=== PATIENT | female | born 1945 | race Caucasian/White ===

== ENCOUNTER → 2017-10-24 19:06 | Outpatient (REF) | payer MEDICARE, SELFPAY | LOC: LAB 19:06 | PROVIDERS: Family Provider Family Medicine Geriatric Medicine; PCP Family Medicine Geriatric Medicine; Visit Provider Orthopaedic Surgery | DX: M16.12 Unilateral primary osteoarthritis, left hip (principal) | CPT/HCPCS: 87070; 87075; 87077; 87205 ==

== ENCOUNTER → 2018-08-18 19:28 | Outpatient (REF) | payer MEDICARE, SELFPAY ==
[2018-08-18 19:43] LABS: Add Manual Diff / Slide Review NO; Basophils Absolute Auto 100 /uL (0-100); Eosinophils Absolute Auto 500 /uL (0-450); Eosinophils Percent Auto 5.3 % (2-4); Hematocrit 41.3 % (36-46); Hemoglobin 13.6 g/dL (12.0-16.0); Lymphocytes Absolute Auto 2900 /uL (1100-4500); Lymphocytes Percent Auto 33.7 % (25-40); Mean Corpuscular HGB Conc 32.9 % (30-36); Mean Corpuscular Hemoglobin 31.6 PG (26-34); Mean Corpuscular Volume 96.1 fL (80-100); Monocytes Absolute Auto 600 /uL (0-900); Monocytes Percent Auto 6.6 % (3-14); Neutrophils Absolute Auto 4700 /uL (1500-7000); Neutrophils Percent Auto 53.4 % (50-75); Platelet Count 221 X10^3/uL (150-400); Red Cell Distribution Width 12.9 % (11.6-14.8); White Blood Cell Count 8.7 X10^3/uL (4.5-11.0)
[2018-08-18 20:15] LABS: Alanine Aminotransferase 33 IU/L (9-52); Albumin 4.4 g/dL (3.5-5.0); Albumin Globulin Ratio 1.9 (1.0-2.8); Alkaline Phosphatase 93 U/L (38-126); Aspartate Aminotransferase 23 IU/L (14-36); BUN Creatinine Ratio 23.8 (6-22); Bilirubin Total 0.2 mg/dL (0.2-1.3); Blood Urea Nitrogen 19 mg/dL (7-17); Carbon Dioxide 27 mmol/L (22-32); Chloride 105 mmol/L (98-107); Cholesterol 207 mg/dL (140-199); Estimated Glomerular Filt Rate > 60.0 mL/min (>60); Globulin 2.3 g/dL (1.7-4.1); Glucose 213 mg/dL (80-110); HDL Cholesterol 46 mg/dL (40-60); HEMOLYSIS < 15 (0-50); LDL Cholesterol Calculated 123 mg/dL (<100); Potassium 4.6 mmol/L (3.4-5.1); Sodium 140 mmol/L (137-145); Total Protein 6.7 g/dL (6.3-8.2); Triglycerides 188 mg/dL (35-150)
[2018-08-18 20:16] LABS: Creatinine Urine Random 206.1 mg/dL
[2018-08-18 20:20] LABS: Microalbumi Creatinin Ratio Ur 18.4 ug/mg CR (<30); Microalbumin Urine Random 3.8 mg/dL (0-1.6)
[2018-08-18 20:22] LABS: Hemoglobin A1C% w Est Avg Glu 8.5 % (4.0-6.0)
[2018-08-18 20:42] LABS: T4 Total Thyroxine 6.71 ug/dL (5.5-11.0); T7 (Free Thyroxine Index) 2.07 (1.65-3.89); Triiodothryronine T3 Uptake 30.8 % (23.5-40.5)
[2018-08-18 20:56] LABS: Thyroid Stimulating Hormone 2.28 uIU/mL (0.47-4.68)
== END ==
LOC: LAB 19:28
PROVIDERS: Family Provider Family Medicine Geriatric Medicine; PCP Family Medicine Geriatric Medicine; Visit Provider Family Medicine Geriatric Medicine
DX: E11.9 Type 2 diabetes mellitus without complications (principal); I10 Essential (primary) hypertension; Z13.29 Encounter for screening for other suspected endocrine disorder; Z79.899 Other long term (current) drug therapy
CPT/HCPCS: 36415; 80053; 80061; 82043; 82570; 83036; 84436; 84443; 84479; 85025

== ENCOUNTER 2020-03-14 09:23 | Day surgery (SDC) | payer MEDICARE, SELFPAY ==
[2020-03-08 12:26] VITALS: BMI 28.3
[2020-03-14] VITALS (20 sets, daily range): BP systolic 105–125; BP diastolic 43–71; PULSE 66–80; RESP 10–18; TEMP 36.2–37.3; O2SAT 90–100; BMI 26.6
--- NOTE | 2020-03-14 | DI.RAD.S_ITS ---
PROCEDURE: XR HIP W PEL IF DONE RT 2V INDICATIONS: POST OP TECHNIQUE: AP pelvis and lateral view of the right hip acquired. [facility], 13:45[facility] [id number] W PEL IF PERFORMED, 09/11/2017, 12:49. FINDINGS: Bones: Patient is status post right hip arthroplasty, with hardware components in expected positions. The hip joint appears congruent. The visualized bony structures appear intact. Soft tissues: Overlying postoperative changes are noted. No suspicious soft tissue densities. IMPRESSION: Normal alignment after right hip arthroplasty, previously present left hip arthroplasty appears normal. Dictated by: Pascual Quinn M.D. on 03/14/2020 at 16:45 Approved by: Pascual Quinn M.D. on 03/14/2020 at 16:46
--- NOTE | 2020-03-14 | DI.RAD.S_ITS ---
PROCEDURE: XR HIP W PEL IF DONE RT 2V INDICATIONS: RIGHT ANTERIOR HIP TECHNIQUE: 2 view(s) of the hip acquired. [id number], 09/11/2017, 12:49. [facility] HIP[facility] [id number] W PEL IF PERFD, 09/04/2016, 9:57. FINDINGS: Bones: Patient is status post right hip arthroplasty, with hardware components in expected positions. The hip joint appears congruent. The visualized bony structures appear intact. There has been a prior left total hip arthroplasty documented in this patient also Soft tissues: Overlying postoperative changes are noted. No suspicious soft tissue densities. IMPRESSION: Normal alignment after right total hip arthroplasty. Prior left total hip arthroplasty has been performed also, with normal alignment on the left maintained. Dictated by: Pascual Quinn M.D. on 03/14/2020 at 14:23 Approved by: Pascual Quinn M.D. on 03/14/2020 at 14:23
[2020-03-14] MEDS: ACETAMINOPHEN 325 MG TABLET 975 MG PO (10:17)
[2020-03-14] MEDS: CELECOXIB 200 MG CAPSULE PO (10:17)
[2020-03-14] MEDS: PREGABALIN 75 MG CAPSULE PO (10:18)
[2020-03-14 10:22] LABS: COVID19 -Nasal RAPID Negative (Negative)
[2020-03-14] MEDS: INSULIN ASPART 100 UNIT/ML 10ML VIAL SUBCUT (10:26)
[2020-03-14] MEDS: LACTATED RINGERS 1,000 ML 42 ML IV ×2 (10:40→12:18)
[2020-03-14] MEDS: VANCOMYCIN 1,000 MG/200 ML PIGGYBACK 200 MG IV (10:44)
--- NOTE | 2020-03-14 11:01 | PM.PREOP ---
Pre-operative Note COVID-19 COVID-19 status: Negative Result date/Date tested (Pos, Neg/Pending): 03/11/20 Interval Note History & Physical reviewed/Exam performed by Physician: Yes Changes to H&P: No
--- NOTE | 2020-03-14 11:02 | P.OP_ITS ---
Operative Date/Time/Diagnoses Date of procedure: 03/14/20 Time of procedure: 11:58 Pre-op diagnosis: right hip OA Post-op diagnosis: same Procedure & Clinicians Procedure: Right total hip arthroplasty anterior approach Same procedure as scheduled: Yes Indications: The patient has had progressively worsening right hip pain with radiographic changes consistent with arthritis. Non-operative management has failed and the patient has requested total hip replacement. The risks, benefits and alternatives to surgery were discussed with the patient prior to proceeding. Risks discussed included, but were not limited to, failure to relieve pain, leg length discrepancy, dislocation, stiffness, infection, nerve damage, deep venous thrombosis, pulmonary embolism, stroke, coma, heart attack, permanent paralysis and , as well as the potential need for eventual revision of the prosthetic. Surgeon: Liz Garza Medical Lab Technician: Rosey Orourke Anesthesia Type: General and Spinal Operative Notes Findings: Severe right hip osteoarthritis, adequate stability and bone Closure Type: primary Specimen(s): none sent Prosthetic devices, grafts, tissues, transplants, or devices: Garza and Nephew R3 52, size 7 standard anthology, +0 Oxinium head, one 6.5 mm screw Estimated Blood Loss (mL): 250 Blood products transfused: none Procedure in detail: The patient was brought to the operating room. Patient was carefully positioned in the supine position. Time-out was performed and antibiotics were given. Anesthesia was induced. She was positioned in the on the table in order to allow hyperextension of the hip. The right lower extremity was prepped and draped in a standard sterile fashion. An anterior right hip incision was made 1 fingerbreadth lateral to the anterior superior iliac spine and extended distally towards the greater trochanter. Dissection was carried out through skin and subcutaneous tissues. The skin and subcutaneous tissues were carefully injected with Marcaine with epi. Superficial hemostasis was achieved. The fascia over the tensor fascia claudia was defined and incised with a knife. Two Allis clamps were used to grasp the fascia. Tensor fascia claudia was retracted laterally. A gelpi retractor was placed. Dissection was carried out down along the neck. The circumflex vessels were carefully identified and cauterized with the Aqua Mantis. There was good visualization of the femoral neck. A Cobra was placed superior to the neck and the gluteus fibers were carefully stripped from that superior aspect of the capsule. A 2nd retractor was placed along the inferior aspect of the neck. The rectus insertion along the capsule was partially released. A 3rd retractor that was then gently placed over the rim of the acetabulum under the rectus. Capsule was carefully incised and released from the intertrochanteric line circumferentially superior to the mid sagittal line and inferiorly to the mid sagittal line until the lesser trochanter was palpable. A tag stitch was placed both in the superior and inferior limb of the capsular insertion. Along the acetabulum capsule was also released up to the mid sagittal 12:00 position. A portion of the labrum was resected. A saw was used to perform an osteotomy at the level of the intertrochanteric line and the junction of the superior femoral neck leaving approximately 1 finger breath of residual inferior neck above the lesser trochanter. A 2nd cut was made along the femoral neck at the base of the head and a napkin ring of neck was removed. Corkscrew was placed in the femoral head and the head was removed without difficulty. Retractors were then repositioned around the acetabulum. Residual labrum was resected and additional osteophytes were removed. A reamer that was 4 mm below the templated size was placed by hand in the acetabulum and it was reamed to centralize the acetabulum. It was then reamed up to 2 under the templated size and fluoroscopy was brought in to confirm the position of the reaming and depth of reaming. I reamed 1 under the anticipated size and touched the rim with line to line reaming. A trial cup was placed and noted that it was appropriately sized and fluoroscopy confirmed position and depth. The component was open and inserted without difficulty fluoroscopic imaging was used to confirm that the cup had been adequately seated and was well positioned. Neutral poly liner was placed. The cup was tested and noted to be stable. Attention was then directed to the femur. The femur was gently hyperextended additional capsular release was performed as needed in order to allow adequate visualization of the proximal femur with elevation of the femur. Patient was placed in a hyperextended slightly adducted position with maximum external rotation. Box osteotome was used to check for any residual neck as well as sclerotic bone along the trochanter. [place] pepper was placed in the femur. Additional broaching was performed. Canal finder was used to determine the alignment of the canal and position. Size 1 broach was placed. The canal was then appropriately broached up to the templated size as long as there was adequate stability of the broach and serial advancement of the broach without excessive impingement. Specific attention was directed at avoiding varus attempting to direct the distal aspect of the broach more anteriorly and avoiding excessive anteversion. Trial reduction showed acceptable range of motion, good stability, no posterior impingement, yarsanism of leg length and appropriate lateral shuck. I also hyperflexed the hip and checked that there was no impingement anteriorly and there was good stability with flexion, adduction and internal rotation. Marcaine and Exparel were injected.. The stem was placed without difficulty. Repeat trial reduction and x-ray showed acceptable overall position, length, and no evidence of the femoral fracture. Final head was placed. Wound was meticulously irrigated with normal saline. The hip was reduced and additional Exparel and Marcaine were injected. The capsule was closed with interrupted nonabsorbable sutures. The fascia of the tensor was closed with interrupted and running Vicryl. No drain was placed. Any tensor fascia claudia muscle that appeared to be contused or injured which was a minimal amount was carefully resected. Capsule around the tensor was injected with Exparel and Marcaine. The skin was closed with barbed stitches for the subcutaneous tissue and skin. We also used surgical glue. The wound was dressed sterilely. Brief Betadine soak was also used and was meticulously irrigated with normal saline. Patient was transferred to recovery room in satisfactory condition. Complications: none Post-operative Condition: stable Disposition: Acute Care Plan for aftercare: The patient will be maintained on a standard total hip replacement protocol with weight bearing as tolerated and anterior hip precautions. The patient will receive Aspirin and sequential compression devices for DVT prophylaxis. The patient will be discharged home when safe for the home environment.
[2020-03-14] MEDS: CEFAZOLIN 2 GM/100 ML FROZ.PIGGY IV ×2 (11:35→20:08)
--- NOTE | 2020-03-14 12:16 | SUR.OPER ---
Supine on padded [place] table with bilateral legs secured in padded positioning boots and suspended in positioning spars, operative leg in traction per surgeon. Head on one pillow. Arm on non-operative side secured on padded armboard <90 degrees abduction. Arm on operative side padded and resting across chest then secured with tape over sheet. Padded perineal post in place per surgeon.
[2020-03-14] MEDS: BUPIVACAINE 0.25% W/ EPI 30 ML VIAL 60 ML INJ (12:18)
[2020-03-14] MEDS: TRANEXAMIC ACID 1,000 MG VIAL 1000 MG INJ ×2 (12:18→14:00)
[2020-03-14] MEDS: BUPIVACAINE LIPOSOME 266 MG/20 ML VIAL INJ (12:19)
[2020-03-14] MEDS: SODIUM CHLORIDE IRRIG SOLUTION 250 ML, POVIDONE-IODINE SPONGE STICKS 1 APPLIC IRR (12:21)
[2020-03-14] MEDS: LACTATED RINGERS 1,000 ML 125 ML IV (15:50)
[2020-03-14] MEDS: METFORMIN HCL 500 MG TABLET 1000 MG PO (17:59)
[2020-03-14] MEDS: ACETAMINOPHEN 325 MG TABLET 650 MG PO (17:59)
[2020-03-14] MEDS: IBUPROFEN 400 MG TABLET PO (18:00)
[2020-03-14] MEDS: TRAMADOL 50 MG TABLET PO (18:00)
--- NOTE | 2020-03-14 18:30 | PC.NURSE ---
Addendum entered by Sherry Fonseca R.N. 03/14/20 22:22: Pt resting at intervals Med x 1 this shift for discomfort w/good relief. CBG = 132 AC; 212 HS HS lantus dose given Dsg remains CDI. Stable post op course. Continue w/plan of care. Original Note: Pt arrived from PACU @ 1550 Alert, denies discomfort Aquacell dsg to right hip CDI IVF LR @ 125cc/hr infusing into left arm via pump w/o incidence. Lungs clear, SpO2 97% RA Is now able to feel lower extremity Stable pot op course. Call light w/in reach, bed alarm on for pt safety.
[2020-03-14] MEDS: ASPIRIN EC 81 MG TABLET PO (20:09)
[2020-03-14] MEDS: atenoloL 50 MG TABLET PO (20:12)
[2020-03-14] MEDS: INSULIN GLARGINE 100 UNIT/ML 3ML PEN 12 UNIT SUBCUT (20:35)
[2020-03-15] MEDS: LACTATED RINGERS 1,000 ML 125 ML IV (00:50)
[2020-03-15] MEDS: IBUPROFEN 400 MG TABLET PO ×3 (00:50→08:06)
[2020-03-15] MEDS: CEFAZOLIN 2 GM/100 ML FROZ.PIGGY IV (03:09)
[2020-03-15 05:32] VITALS: BP 110/57; PULSE 78; RESP 18; TEMP 36.5; O2SAT 99
[2020-03-15 06:11] LABS: Hematocrit 30.3 % (36-46)
[2020-03-15 07:39] VITALS: BP 120/59; PULSE 71; RESP 18; TEMP 36.6; O2SAT 97
--- NOTE | 2020-03-15 07:43 | PM.PN.1 ---
Subjective Subjective Date Patient Seen: 03/15/20 Time Patient Seen: 07:43 Interval history: Patient is POD# 1 s/p right anterior JASE with Dr. Garza. Pain has been well controlled with Tylenol and Motrin. She has been out of bed to the toilet, pending PT today. She has been voiding appropriately and has tolerated a diet. She has no complaints. No chest pain or shortness of breath. Exam Vital Signs (past 8 hours): - 03/15/20 05:32 Temperature 97.7 F Pulse Rate 78 Respiratory Rate 18 Blood Pressure 110/57 L Pulse Oximetry 99 Oxygen Delivery Method Room Air Oxygen Flow Rate 0 Narrative Exam Narrative: 74 year old female resting in bed, alert and oriented in no acute distress. Dressing in place is CDI. Patient having some difficulty with straight leg raise but is 5/5 in distal extremity. Calves are soft and nontender. Objective Labs Result Diagrams: 03/15/20 05:50 Labs: Laboratory Results - last 24 hr 03/14/20 03/15/20 09:50 05:50 Hgb 10.0 L Hct 30.3 L COVID-19 PCR Negative Assessment & Plan Assessment & Plan narrative: Patient is doing well postoperatively. She will work with PT today. ASA 81mg BID and SCDs for DVT prophylaxis. Has a friend who will be her caregiver postop and outpatient PT is set up. Plan is to discharge to home later today as long as she is cleared by PT.
[2020-03-15] MEDS: ACETAMINOPHEN 325 MG TABLET 650 MG PO (08:04)
[2020-03-15] MEDS: METFORMIN HCL 500 MG TABLET 1000 MG PO (08:04)
[2020-03-15] MEDS: atenoloL 50 MG TABLET PO (08:05)
[2020-03-15] MEDS: CITALOPRAM 10 MG TABLET 20 MG PO (08:05)
[2020-03-15] MEDS: FUROSEMIDE 20 MG TABLET 10 MG PO (08:05)
[2020-03-15] MEDS: DOCUSATE 100 MG CAPSULE PO (08:05)
[2020-03-15] MEDS: ASPIRIN EC 81 MG TABLET PO (08:05)
[2020-03-15] MEDS: GLIMEPIRIDE 2 MG TABLET PO (08:06)
[2020-03-15] MEDS: SODIUM CHLORIDE 0.9% FLUSH 10 ML IV (08:07)
[2020-03-15 11:41] VITALS: BP 100/56; PULSE 77; RESP 16; TEMP 36.2; O2SAT 96
--- NOTE | 2020-03-15 14:21 | CM.DPC ---
DCP/Assessment: Reviewed chart. Patient is a 74yr old female admitted to [facility] for elective right hip surgery performed on 03-14-20. PCP is Dr. Shukla. Primary payor is 1)Medicare 2)[facility]. Met with patient explained CM/SW role. Patient preparing to discharge home at time of visit. Patient reports that she will be going to her friend's for a few days before returning to Friday. Patient's friend in room and reports that he will contact [employer] to obtain walker. Patient seen by therapy and caregiver training completed. P: Home with friend today. Patient scheduled to do outpatient therapy once she gets back to Friday. SUSY Durand Discharge Planning/Care Management Advanced directive, confirm from FAMILY Start: 03/14/20 18:23 Freq: Q24H Status: Discharge Protocol: Document 03/14/20 18:23 KMD (Rec: 03/14/20 18:23 KMD [id number]) Advance Directive, confirm on record Time 18:23 Person contacted Patient Copy received No CM Discharge Assessment Start: 03/15/20 14:18 Freq: Status: Active Protocol: Document 03/15/20 14:18 KJS (Rec: 03/15/20 14:21 KJS [id number]) Discharge Planning Assessment Assigned Doggy Daycare Activities Director SUSY Durand Contact Information Yobani Hammer (friend) Advance Directives? Yes History Provided By Patient,Friend,Medical Record Prior Living Arrangements House Household Members none Independent with ADL's Yes Is patient alert and oriented? Yes Caregiver for Another No Comment Patient plans to obtain [facility]. Patient/Family Preference OP PT Therapy Comment Patient has outpatient therapy arranged on Friday. Scheduled to begin next week. Barriers to Discharge No Comment Patient plans to stay with friend in [place] for a few days prior to returning home. Discharge Plan Home Transportation Arrangement Friend Referrals Initiated None needed Review Status In Process Next Review Type Continued Stay Review Pre-Anesthesia Assessment Start: 03/07/20 09:00 Freq: Status: Complete Protocol: Document 03/08/20 12:26 CAB (Rec: 03/07/20 09:10 CAB [id number]) Pre-Anesthesia Assessment Preferred Name Hyacinth or Deysi Patient Information Reviewed Via Phone Assessment Assessment Completed With Patient Comment Pre-op labs/EKG/COVID screen not identified Primary Care Provider Marybeth Wayne Seen Specialist in Last 12 Months Yes Specialist Seen Orthopedist Primary Language Divehi Teletype Operator Required No Height 162.56 cm Weight 74.843 kg Body Mass Index (BMI) 28.3 Hearing Ability Hard of Hearing,Use of Hearing Aid Visual Assist Magnifying Glass Barriers to Learning None Hx Anesthesia Reactions No Hx Family Anesthesia Reaction No Hx Malignant Hyperthermia No Hx Blood Transfusions No Anesthesia Review Requested Yes: Surgeon office requested re: EKG review alcohol intake current alcohol intake frequency a few times a month Smoking Status Former smoker how long ago did patient quit smoking Quit 1987 Substance Use Type does not use Pain Present Pain Reported Musculoskeletal Symptoms Abnormal Gait,Difficulty Walking,Joint Pain History of Falling (Recent or History of No ) Patient is completely paralyzed or No completely immobile Mental Status Oriented to own ability Is patient on oxygen? No Does patient have ROSARIO/SOB No Hx Sleep Apnea No Currently Taking a Beta Jaquan Yes: Atenolol Hx Chest Pain No Hx SOB No Hx Syncope or Dizziness No Anti-Coagulant Therapy No Has a Exercise Teacher No Cardiac Testing No Hx Pacemaker/ICD No Pacemaker Rep Required? No Diet Type At Home Regular dysphagia No Gastrointestinal Symptoms Diarrhea Urinary Catheter Present No Hx Urinary Self Catheterization No Diabetes Yes HgbA1C 8.5 Date 08/18/18 Patient No Lactating No Hx Drug Resistant Organism No Presence of External or Internal Medical Yes: Jameel eye lens, left hip Devices prosthesis Have you had any close contact with No someone diagnosed with COVID-19? Marital Status May 21 2019 Lives With none Prior Living Arrangements House Number of Floors (Floors) One Floor Support System Friend(s) Does the Patient Have Assistance After Yes: Will stay w/friend to Surgery assist w/care at [place] Patient Discharge Plan Description Return Home Comment Lives on [facility] Additional comment Pt not advised on length of stay per surgeon Feels Safe in Current Environment Yes Been Physically Hurt or Threatened By a No Person in Current Environment Do you have thoughts of harming yourself None or others? Are you currently considering suicide? No Do you have a plan to hurt yourself or No Plan others? Do You Have Any Spiritual Beliefs That No May Affect Your HC Choices? Do You Have Any Cultural Practices That No May Affect Your HC Choices? Comment Marva Who Can We Speak to About Patient's Care Family, friends Identifying Code for Release of Patient Declines to issue Information Health Care Proxy/Next of Kin Meredith Nelson (friend) Health Care Proxy Emergency Contact Name Yobani Grider (friend) Emergency Contact or [phone] Advance Directives? No Power of Metal Base Blocker Yes Power of Metal Base Blocker Name Zeny (stepdaughter) Power of Metal Base Blocker PAC Instructions Diabetes instructions,Do not shave/clip surgical site, Durable medical equipment, Medications to take/avoid, Nasal antibiotic,No ETOH/ petroleum product on skin DOS, NPO,Pre-surgical wash,Sensory aids,Sturdy shoes/comfortable clothes,Do not bring valuables and remove jewelry
--- NOTE | 2020-03-15 14:58 | PT.IIE ---
Current Diagnoses Unilateral primary osteoarthritis, right hip (03/14/20) Surgery Performed Operation Date: 03/14/20 11:30 Actual Procedures p Total Hip Arthroplasty/Anterior Approach(Right) - Liz Garza MD Surgical History (Last Updated 03/07/20 @ 09:04 by Carola Merlos RN) History of arthroplasty of left hip (Acute 09/11/17) History of section (Acute) Hx of bilateral cataract extraction (Acute) Hx of cholecystectomy (Acute) Hx of tonsillectomy (Acute) Medical History (Last Updated 03/07/20 @ 09:04 by Carola Merlos RN) Anxiety (Acute) Depression (Acute) Former smoker (Acute) Headache, migraine (Acute) Hypothyroidism (Acute) Skin cancer (Acute) Physical Therapy Inpatient Evaluation/Re-Eval M1 PT/OT-IP Prior Functional Status Start: 03/15/20 08:17 Freq: NEEDED Status: Discharge Protocol: Document 03/15/20 14:33 DE (Rec: 03/15/20 14:34 DE [id number]) Medical Review Prior Functional Status Medical History Reviewed Yes Diet/Fluid Consistency Regular Communication WNL. No deficits noted. Able to make needs known. Mobility and Gait IND with all mobility and amb without any AD but walks slowly d/t fear of falling. Sometimes uses furniture for support when walking at home. Activities of Daily Living and IADL's IND with all ADLs and IDLs at baseline. Able to drive and finish grocery shopping with a cart. Prior Functional Level (Other details) Hx of L JASE. Denies hx of falls. Social History Household Members none Living Arrangements House M2 PT-IP Current Condition Start: 03/15/20 08:17 Freq: NEEDED Status: Discharge Protocol: Document 03/15/20 11:19 DE (Rec: 03/15/20 12:23 DE [id number]) Physical Therapy Current Condition Current Condition Evaluation Date 03/15/20 Treatment Diagnosis R JASE; Difficulty with amb Onset Date 03/14/20 Precautions Anterior Hip Precautions No Hip Extension,No Hip External Rotation Weight Bearing Status Weight Bearing Status Weight Bear as Tolerated M3 PT-IP Subjective Start: 03/15/20 08:17 Freq: NEEDED Status: Discharge Protocol: Document 03/15/20 14:41 DE (Rec: 03/15/20 14:44 DE [id number]) Subjective Physical Therapy Visit Type Type Treatment Note Visit Start Time 13:15 Visit Stop Time 13:36 Total Visit Minutes 16 Notes SPT Jered treated pt under direct supervision of PT Brant. Number of AIR DRIER Visits 0 Physical Therapy Visit Comments Patient Comments I am ready to go home Patient Goals To return home. Therapy Pain Assessment Pain When Pain Assessed During Weight Bearing Pain Present Pain Present Pain Reported Location right knee Intensity 3 Scale Used Numeric (0 - 10) Description Aching Pain Behaviors Calling Out Pain Management Techniques Timing of Activity with Medications M4 PT-IP Mobility and Gait Start: 03/15/20 08:17 Freq: NEEDED Status: Discharge Protocol: Document 03/15/20 11:19 DE (Rec: 03/15/20 12:23 DE [id number]) PT-Transfer Assessment Sit to and From Stand Sit to and from Stand Contact Guard Assistance,Use of Upper Extremities Equipment Transfer Assistive Device Gait Belt,Front Wheeled Walker ,4 Wheeled Walker Orthotic/Prosthetic Devices or Brace: No Transfers Transfer Destination Chair Transfer Technique Stand Step Pivot Transfer Ability Level of Assist Contact Guard Assistance,Use of Upper Extremities Comments Mobility Comments Pt was sitting upright in chair as PT and SPT arrived. BP was 106/56. Pt participated in a LE assessment. Pt then completed sit to stand with CGA, FWW, and use of BUE on the armrests. Pt used significant amount of WB through her BUE on the armrests to stand up. BP in standing was 141/56. Pt denied any dizziness or lightheadedness. After resting ~1 min in standing, pt amb with CGA around foot of bed and out in the hallway to the stairs and back to the chair in the room, which was ~90 ft total. Pt used FWW for the first ~45 ft and used 4WW for the rest. No LOB noted. Pt c/o mild pain in the R knee 07/26. Pt demonstrated step-to gait pattern initially, but progressed to step-through after ~15 ft. Pt was instructed to decreased stride length to prevent extension in the R hip. Pt performed stair climbing up and down 3 steps x2. The first time, pt used R handrail up and min 1P [employer] for ascending and descending. The second time, she used BUE on the R handrail to ascend and used L handrail and min 1P R [employer] to descend. Pt demonstrated step-to pattern. Pt attempted to lead with the RLE to ascend but was instructed to lead with the LLE. Pt demonstrated more difficulty with ascending than descending. Pt had trouble remembering which leg to lead with. Pt amb back to the room and sat down in the chair with CGA and FWW. Call light placed within reach. Gait Assessment Gait Gait Assistance Required: Contact Guard Assist Distance (Feet) 90 Able to Maintain Weight Bearing Status Yes During Gait Assistive Devices Assistive Device Gait Belt,Front Wheeled Walker ,4 Wheeled Walker Orthotic/Prosthetic Devices or Brace: No Gait Deviations General Gait Pattern Antalgic,Decreased Stride Length,Lateral Trunk Lean,Step -to Gait Factors Limiting Gait Function Factors Limiting Gait Function Decreased Activity Tolerance, Decreased Strength,Limited Range of Motion,Pain,Poor Balance,Poor Safety Awareness Comments Gait Comments See mobility comments. Stair Climbing Assessment Evaluation Level of Assist On Stairs 1 Person Assistance Devices Stair Climbing Assistive Devices Right Railing Technique/Endurance Stair Climbing Direction Ascend and Descend Stair Climbing Technique Step to Step Number of Steps Climbed 3 Query Text: Stair Climbing Set # Repetitions (reps) 2 Comments Stair Climbing Comments See mobility comments. PT-Balance Assessment Sitting Balance and Reactions Static Sitting Balance Ability Normal Dynamic Sitting Balance Ability Normal Standing Balance and Reactions Static Standing Balance Ability Normal Dynamic Standing Balance Ability Good M5 PT-IP Objective Assessments Start: 03/15/20 08:17 Freq: NEEDED Status: Discharge Protocol: Document 03/15/20 11:19 DE (Rec: 03/15/20 12:23 DE [id number]) Orientation Orientation/Cognition Level of Alertness Alert Orientation Name,Age,Birthday,Month,Date, Year,Day of Week,Place, Situation Language Function Ability No Deficits Noted Safety Awareness Decreased Safety Awareness Memory Description No Deficits Noted Gross Range of Motion Lower Extremity ROM Assessment Right Impaired Strength Lower Extremity Strength Assessment Right Impaired Hip 3+/5 Coordination Assessment Gross Coordination Gross Coordination WNL Sensation Assessment Sensation Gross Sensation WNL Light Touch Intact Muscle Tone Muscle Tone WNL Yes M6 PT-IP Treatment Start: 03/15/20 08:17 Freq: NEEDED Status: Discharge Protocol: Document 03/15/20 11:19 DE (Rec: 03/15/20 12:23 DE [id number]) Physical Therapy Treatment Education Education Provided Precautions,Weight Bearing Status,Post-Op Packet,Safety M7 PT-IP Assessment and Plan Start: 03/15/20 08:17 Freq: NEEDED Status: Discharge Protocol: Document 03/15/20 11:19 DE (Rec: 03/15/20 12:23 DE [id number]) PT Summary Assessment and Plan Potential Rehabilitation Potential Excellent Status of Condition at Evaluation Stable Summary Impairments Pain,ROM,Strength,Balance,Bed Mobility,Transfers,Gait, Activity Tolerance Assessment Summary This is a low complexity evaluation for 74 yo female, Deysi, s/p R JASE POD1. PLOF = IND for all mobility and amb but walks slowly d/t fear of falling. Denies hx of falls. CLOF= Able to perform transfers and amb with CGA and FWW. Pt requires 1P min [employer] for stair climbing and R handrail up. Pt had difficulty remembering the instructions for stair climbing. CG training is planned in PM. PT anticipates that pt will be safe to d/c home with assistance after CG training. Pt will benefit from outpatient PT to improve strength and ROM in the hip. Goals Bed Mobility Goal Independent Transfer Goal Independent Gait Goal Independent Gait Distance 100 Other Goals Ascend/descend 3 steps with CGA and R handrail up. Frequency of Treatment Frequency Of Treatment Twice a Day Treatment Plan Physical Therapy Treatment Plan Bed Mobility Training,Transfer Training,Gait Training, Therapeutic Exercise,Balance Retraining,Post Op Education, Discharge Planning Other Recommendations and Next Treatment CG training Focus Recommendations To Nursing Amount of Assist Needed 1 Person Assist Discharge Recommendations PT Discharge Recommendations Home with Assistance Transportation Needs at Discharge Private Vehicle This note is written by Jered Mendez, BELLA. It has reviewed and approved by Amalia Aldridge, PT.
--- NOTE | 2020-03-15 15:33 | PT.IPTN ---
Current Diagnoses Unilateral primary osteoarthritis, right hip (03/14/20) Surgery Performed Operation Date: 03/14/20 11:30 Actual Procedures p Total Hip Arthroplasty/Anterior Approach(Right) - Liz Garza MD Physical Therapy Treatment Note M2 PT-IP Current Condition Start: 03/15/20 08:17 Freq: NEEDED Status: Discharge Protocol: Document 03/15/20 11:19 DE (Rec: 03/15/20 12:23 DE [id number]) Physical Therapy Current Condition Current Condition Evaluation Date 03/15/20 Treatment Diagnosis R JASE; Difficulty with amb Onset Date 03/14/20 Precautions Anterior Hip Precautions No Hip Extension,No Hip External Rotation Weight Bearing Status Weight Bearing Status Weight Bear as Tolerated M3 PT-IP Subjective Start: 03/15/20 08:17 Freq: NEEDED Status: Discharge Protocol: Document 03/15/20 14:41 DE (Rec: 03/15/20 14:44 DE [id number]) Subjective Physical Therapy Visit Type Type Treatment Note Visit Start Time 13:15 Visit Stop Time 13:36 Total Visit Minutes 16 Notes SPT Jered treated pt under direct supervision of PT Brant. Number of FANS CLERK Visits 0 Physical Therapy Visit Comments Patient Comments I am ready to go home Patient Goals To return home. Therapy Pain Assessment Pain When Pain Assessed During Weight Bearing Pain Present Pain Present Pain Reported Location right knee Intensity 3 Scale Used Numeric (0 - 10) Description Aching Pain Behaviors Calling Out Pain Management Techniques Timing of Activity with Medications M4 PT-IP Mobility and Gait Start: 03/15/20 08:17 Freq: NEEDED Status: Discharge Protocol: Document 03/15/20 14:41 DE (Rec: 03/15/20 15:26 DE [id number]) PT-Transfer Assessment Sit to and From Stand Sit to and from Stand Contact Guard Assistance,Use of Upper Extremities Equipment Transfer Assistive Device Gait Belt,Front Wheeled Walker ,4 Wheeled Walker Orthotic/Prosthetic Devices or Brace: No Transfers Transfer Destination Chair Transfer Technique Stand Step Pivot Transfer Ability Level of Assist Contact Guard Assistance,Use of Upper Extremities Comments Mobility Comments Pt was sitting in chair as PT and SPT arrived. Pt's friend, Yobani, was also present for CG training. Pt completed sit to stand and amb ~50 ft out to the hallway with CGA and 4WW. Pt then performed 1 PF step x6 with CGA. Pt did the first 4 times with 4WW. Pt was able to complete it without LOB but demonstrated some difficulty with handling the 4WW. Pt sat down on 4WW and rested for ~2 min. Pt was recommended to try FWW and she performed the last 2 times with FWW. Pt had more stability with FWW, and Pt and her CG also agreed. Pt amb ~10 ft to w/c outside the room and sat down on the w/c. PT then handed pt off to the nurse who then helped her with medications before d/c. Gait Assessment Gait Gait Assistance Required: Contact Guard Assist Distance (Feet) 60 Able to Maintain Weight Bearing Status Yes During Gait Assistive Devices Assistive Device Gait Belt,4 Wheeled Walker Orthotic/Prosthetic Devices or Brace: No Gait Deviations General Gait Pattern Antalgic,Decreased Stride Length,Lateral Trunk Lean,Step -to Gait Factors Limiting Gait Function Factors Limiting Gait Function Decreased Activity Tolerance, Decreased Strength,Limited Range of Motion,Pain,Poor Balance,Poor Safety Awareness Comments Gait Comments See mobility comments. Stair Climbing Assessment Evaluation Level of Assist On Stairs Contact Guard Assistance Devices Stair Climbing Assistive Devices None Technique/Endurance Stair Climbing Direction Ascend and Descend Stair Climbing Technique Step to Step Number of Steps Climbed 1 Stair Climbing Set # Repetitions (reps) 6 Comments Stair Climbing Comments See mobility comments. PT-Balance Assessment Sitting Balance and Reactions Static Sitting Balance Ability Normal Dynamic Sitting Balance Ability Normal Standing Balance and Reactions Static Standing Balance Ability Normal Dynamic Standing Balance Ability Good M5 PT-IP Objective Assessments Start: 03/15/20 08:17 Freq: NEEDED Status: Discharge Protocol: Document 03/15/20 11:19 DE (Rec: 03/15/20 12:23 DE [id number]) Orientation Orientation/Cognition Level of Alertness Alert Orientation Name,Age,Birthday,Month,Date, Year,Day of Week,Place, Situation Language Function Ability No Deficits Noted Safety Awareness Decreased Safety Awareness Memory Description No Deficits Noted Gross Range of Motion Lower Extremity ROM Assessment Right Impaired Strength Lower Extremity Strength Assessment Right Impaired Hip 3+/5 Coordination Assessment Gross Coordination Gross Coordination WNL Sensation Assessment Sensation Gross Sensation WNL Light Touch Intact Muscle Tone Muscle Tone WNL Yes M6 PT-IP Treatment Start: 03/15/20 08:17 Freq: NEEDED Status: Discharge Protocol: Document 03/15/20 11:19 DE (Rec: 03/15/20 12:23 DE [id number]) Physical Therapy Treatment Education Education Provided Precautions,Weight Bearing Status,Post-Op Packet,Safety M7 PT-IP Assessment and Plan Start: 03/15/20 08:17 Freq: NEEDED Status: Discharge Protocol: Document 03/15/20 14:41 DE (Rec: 03/15/20 15:26 DE [id number]) PT Summary Assessment and Plan Potential Rehabilitation Potential Excellent Status of Condition at Evaluation Stable Summary Impairments Pain,ROM,Strength,Balance,Bed Mobility,Transfers,Gait, Activity Tolerance Progress Towards Goals Safe For Discharge Assessment Summary Pt changed her plan to go to her house and decided to go to his friend's house instead that is 1-story house with 1 PF JOSE MIGUEL and 0 steps inside. Pt and CG education was provided on 1 PF step instead of stairs . Pt demonstrated some difficulty with managing 4WW on the PF step but had more stability with FWW. PT recommended to use FWW at this time until she feels more stable and both pt and CG agreed. They stated they will obtain one from [employer]. Pt is safe to d/c to his friend's house with assistance, along with outpatient PT Discharge Recommendations PT Discharge Recommendations Home with Assistance, outpatient PT Other Discharge Recommendations Pt and CG agreed that they will acquire and use a temporary FWW until she is safe to use her 4WW. Transportation Needs at Discharge Private Vehicle This note is written by BELLA Christianson. It has been reviewed and approved by Amalia Aldridge, PT
== END 2020-03-15 13:47 | disposition home or self-care (01) ==
LOC: OR 09:29 → AC 12:45
PROVIDERS: Family Provider Family Medicine Geriatric Medicine; PCP Family Medicine Geriatric Medicine; Referring Provider Orthopaedic Surgery; Visit Provider Orthopaedic Surgery
PROC: (CPT 27130; principal; 2020-03-14 11:30)
DX: M16.11 Unilateral primary osteoarthritis, right hip (principal); Z11.59 Encounter for screening for other viral diseases; I10 Essential (primary) hypertension; E11.9 Type 2 diabetes mellitus without complications; Z79.4 Long term (current) use of insulin; F41.9 Anxiety disorder, unspecified
CPT/HCPCS: 27130; 36415; 73502; 76000; 82962; 85014; 85018; 87635; 94762; 97116; 97161; 97530; C1776; C9290; J0690; J2274; J2704